=== PATIENT | male | born 2000 | race Caucasian/White ===

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

== ENCOUNTER 2022-08-25 13:58 | Emergency (ER) | payer BC, SELFPAY ==
[2022-08-25 13:59] VITALS: BP 124/70; PULSE 112; RESP 16; TEMP 36.6; O2SAT 100; BMI 23.6
[2022-08-25 14:38] VITALS: BMI 24.9
[2022-08-25 15:05] VITALS: TEMP 38.1
--- NOTE | 2022-08-25 15:06 | EDS_ITS ---
HPI History of Present Illness Chief Complaint: Neuro S/Sx Detail of Chief Complaint: Ejective fever, bilateral hand numbness and nausea and vomiting Informant: patient and parent Onset/Context/Timing Onset: Today Context: Sudden Onset Timing: Intermittent Quality: Generalized viral-like symptoms Location: Generalized Current Severity: Mild Maximum Severity: Moderate Worsened by: Nothing Relieved by: Nothing Associated Symptoms Associated Symptoms: Subjective fever Narrative Narrative: Patient is a 21-year-old healthy male on no medication and has no allergies who presents with subjective fever with nausea and vomiting x4. Last bowel movement yesterday. He denies headache, visual, ocular auditory symptoms. He denies rhinorrhea, congestion, postnasal drainage sore throat. He denies shortness of breath or cough. He denies chest discomfort. He denies abdominal pain. He denies urologic symptoms. He reports decreased urine output. He has equivocal orthostatic symptoms. He denies rash. He does endorse aches. Patient states he is taking creatine for sports . Prior similar symptoms: No Recent Illness/Hospitalization: No PFSH PFSH Medical History no medical history no medical history Home Medications No Known/Unobtainable [No Known Home Medications] 01/15/15 [History Last Taken Unknown] Allergy/AdvReac Type Severity Reaction Status Date / Time No Known Allergies Allergy Verified 08/25/22 14:02 Surgical History no surgical history no surgical history Social History (Updated 08/25/22 @ 15:[address] Tom Pascual MD) household members: family Smoking Status: Never smoker alcohol intake: never substance use type: does not use ROS ROS ED Constitutional Constitutional ED: Reports fever(s) and subjective; Denies chills, sweats or weight loss Eyes Eyes: Denies blurry vision, change in vision or diplopia ENT ENT ED: Denies ear pain, rhinorrhea or sore throat Cardiovascular Cardiovascular: Denies chest pain, orthopnea, palpitations, paroxysmal nocturnal dyspnea or racing heartbeat Respiratory/Chest Respiratory/Chest: Denies cough, dyspnea, dyspnea on exertion, orthopnea or paroxysmal nocturnal dyspnea Gastrointestinal Gastrointestinal: Reports nausea and vomiting; Denies abdominal pain, constipation, diarrhea or melena Genitourinary Genitourinary ED: Denies dysuria, hematuria or urinary frequency Musculoskeletal Musculoskeletal: Denies arthralgias, back pain, myalgias or neck pain Integumentary Denies abscess, Abrasions or rash Neurologic Neurologic: Reports paresthesias; Denies headache(s) or weakness Psychiatric Psychiatric: Denies anxiety or depression Endocrine Endocrinology: Reports cold intolerance; Denies heat intolerance Hematologic/Lymphatic Hematologic/Lymphatic: Reports systems reviewed and no addt'l complaints, except as documented Allergic/Immunologic Allergic/Immunologic ED: Reports mouth swelling and tongue swelling EXAM Physical Exam Const Vital Signs: 08/25/22 13:59 08/25/22 15:05 Temperature 97.8 F 100.6 F H Temperature Source Temporal Oral Pulse Rate 112 H Respiratory Rate 16 Blood Pressure 124/70 H Blood Pressure Mean 88 Pulse Ox 100 Oxygen Delivery Method Room Air Positive well nourished and well developed Constitutional Narrative: Patient appears ill but not toxic. General Appearance ED: well developed; Negative for cyanotic, diaphoretic or pallor HEENT Reports dry mucous membranes; Denies moist mucous membranes HEENT Narrative: Head is atraumatic normocephalic. Ears normal. Nares patent. Posterior pharynx is normal. Mouth ED: Yes dry mucous membranes Mouth: dry mucous membranes Eyes PERRL and EOMs intact bilaterally General Eye ED: Negative for pale conjunctiva or scleral icterus Neck no lymphadenopathy, supple and no JVD Chest Wall inspection of chest normal and palpation of chest normal Resp normal respiratory effort and clear to auscultation bilaterally Cardio regular rhythm, S1 normal heart sound, S2 normal heart sound and no murmurs Rate: tachycardic GI normal to inspection, nondistended, normoactive bowel sounds, non-tender, non-distended and no masses; Negative for hepatosplenomegaly Back/Spine no CVA tenderness Thoracic Spine / Upper Back: thoracic spinal tenderness Lumbar Spine / Lower Back: lumbar spinal tenderness Extremity normal to inspection General Extremety ED: Negative for edema or tenderness General Extremity: Negative for edema Neuro oriented x3, CN's II-XII intact bilaterally and no sensory deficits noted Sensorium / Orientation: alert Motor Exam: strength 5/5 throughout Psych mental status grossly normal Skin no rashes or lesions noted, no wounds and skin turgor normal General Skin Exam: elasticity normal; Negative for jaundice or pallor MDM MDM MDM Narrative Medical decision making narrative: Patient's history physical is consistent with hyperventilation since he has a positive Chv[place]ek sign bilaterally and reported carpal spasm with bilateral hand numbness. His symptoms are consistent with a viral illness. Repeat temp is 100.6. Patient was treated with IV fluids. He was informed he may be ill for another 7 to 10 days. He and his mother were informed of test results and impression. They acknowledge understanding. Lab Data Attestation: I reviewed the patient's lab results. Lab results narrative: BMP is remarkable slight elevation of creatinine with a GFR 67. UA is remarkable for protein otherwise negative.'s of gravity is 1.01. Labs: Laboratory Results - last 24 hr 08/25/22 08/25/22 15:22 15:22 Sodium 134 L Potassium 3.9 Chloride 100 Carbon Dioxide 26.0 Anion Gap 8 BUN 13 Creatinine 1.43 H Estim Creat Clear Calc 85.79 Est GFR (MDRD) Af Amer 81 Est GFR (MDRD) Non-Af 67 BUN/Creatinine Ratio 9.1 L Glucose 106 Calcium 9.5 Urine Color Yellow Urine Clarity Clear Urine pH 8.0 Ur Specific [place] 1.010 Urine Protein 15 H Urine Glucose (UA) Normal Urine Ketones Negative Urine Occult Blood Negative Urine Nitrite Negative Urine Bilirubin Negative Urine Urobilinogen Normal Ur Leukocyte Esterase Negative Discharge Plan Triage Chief Complaint: Neuro S/Sx ED Provider: Tom Pascual Dx/Rx/DC Orders Clinical Impression: Systemic viral illness, Fever and chills, Nausea & vomiting, Hyperventilation syndrome Instructions: ED Viral Syndrome (Adult) Prescriptions: No Action No Known Home Medications Primary Care Provider: Jimena Oneal Referrals: Jimena Oneal MD [Primary Care Provider] - 10-14 Days if not better Disposition Disposition: Home, Self Care
[2022-08-25 15:29] LABS: Color, Urine Yellow (Yellow); Glucose, Dipstick Normal (Normal); Ketone-Dipstick Negative (Negative); Leukocyte Esterase-Dipstick Negative /ul (Negative); Nitrite-Dipstick Negative (Negative); Occult Blood-Urine Negative /ul (Negative); Protein-Dipstick 15 mg/dl (Negative); Urine Bilirubin Dipstick Negative (Negative); Urine Clarity Clear (Clear); Urine Urobilinogen Normal (Normal)
[2022-08-25] MEDS: 0.9% Normal Saline 1,000 ML 1000 ML IV (15:30)
[2022-08-25] MEDS: Ondansetron 4 MG/2 ML Vial IV (15:30)
[2022-08-25 15:42] LABS: Anion Gap 8 (5-15); BUN 13 mg/dL (7-18); BUN/Creat Ratio 9.1 RATIO (10-20); Calcium,Total 9.5 mg/dL (8.5-10.1); Chloride 100 mmol/L (98-107); Creatinine, Serum 1.43 mg/dL (0.70-1.30); EST Glomerular Filtration Rate 67 mL/min (>60); Est Glom Filt Rate - Afr Amer 81 mL/min (>60); Estimated Creatinine Clearance 85.79 ml/min; Glucose 106 mg/dL (74-106); Potassium 3.9 mmol/L (3.5-5.1); Sodium Level 134 mmol/L (136-145)
== END 2022-08-25 16:37 | disposition home or self-care (01) ==
PROVIDERS: Emergency Provider Emergency Medicine; PCP Family Medicine; Visit Provider Emergency Medicine
DX: B34.9 Viral infection, unspecified (principal); R11.2 Nausea with vomiting, unspecified; R06.4 Hyperventilation; R68.83 Chills (without fever); R20.0 Anesthesia of skin
CPT/HCPCS: 80048; 81002; 96361; 96374; 99283; J7030; A4216; J2405

== ENCOUNTER → 2023-01-08 | Outpatient (CLI) | payer BC, SELFPAY ==
--- NOTE | 2023-01-08 15:29 | RAD_ITS ---
INDICATION: injury. laterla knee pain. EXAMINATION/TECHNIQUE: X-RAY - LEFT XR Knee Complete 4 Views or More 4 VIEWS COMPARISON: FINDINGS: BONES: No fracture demonstrated. JOINTS: No dislocation. SOFT TISSUES: Unremarkable. RAD/Knee 4 or More Views IMPRESSION: No evidence of fracture. Electronically Signed: Jesica Walker MD at 23:07 EDT ,
== END | disposition home or self-care (01) ==
LOC: MTRAD 15:28
PROVIDERS: PCP Family Medicine; Visit Provider Family Medicine
DX: S83.289A Other tear of lateral meniscus, current injury, unspecified knee, initial encounter (principal); X58.XXXA Exposure to other specified factors, initial encounter
CPT/HCPCS: 73564

== ENCOUNTER → 2023-02-24 | Outpatient (CLI) | payer BC, SELFPAY ==
--- NOTE | 2023-02-24 08:27 | MRI_ITS ---
STUDY: MRI LEFT KNEE REASON FOR EXAM: Male, 22 years old. Left knee pain, fluid buildup, limited range of motion for 3 months. TECHNIQUE: Standardized fat and water weighted pulse sequences were obtained in all 3 orthogonal planes. COMPARISON: Left knee radiographs dated 01/08/2023. FINDINGS: There is a horizontal-oblique undersurface tear of the posterior horn of the medial meniscus. There is a partial tear of the posterior medial meniscal root (coronal T2 series 7 images 10-11; sagittal PD series 4 image 17). There is also a displaced free edge tear of the body of the medial meniscus with flipped meniscal fragment extending superiorly into the medial gutter (coronal T2 series 7 images 14-18). There is marrow stress edema in the medial femoral condyle and medial tibial plateau. Normal hyaline cartilage of the medial femorotibial compartment. Normal medial collateral ligamentous complex (MCL). Normal distal semimembranosus, gracilis and semitendinosus tendons. Normal lateral meniscus. Normal hyaline cartilage of the lateral femorotibial compartment. Normal lateral femoral condyle and tibial plateau. Normal proximal tibiofibular articulation. Normal lateral collateral (fibular) ligament. Normal popliteus tendon. Normal biceps femoris tendon. Normal anterior cruciate ligament (ACL). Normal posterior cruciate ligament (PCL). Normal congruent patellofemoral articulation. Normal hyaline cartilage of the patellofemoral compartment. Normal medial and lateral patellar retinaculum. Normal quadriceps tendon. Normal patellar tendon. Normal Hoffa''s fat pad. There is a small to moderate joint effusion. There is a small popliteal cyst. The soft tissues are unremarkable. There is no acute fracture. MRI/Lower Ext Joint Only (Routine) IMPRESSION: Horizontal-oblique undersurface tear of the posterior horn of the medial meniscus. Partial tear of the posterior medial meniscal root. Displaced free edge tear of the body of the medial meniscus with flipped meniscal fragment extending superiorly into the medial gutter. Marrow stress edema in the medial femoral condyle and medial tibial plateau. Small to moderate joint effusion. Small popliteal cyst. Electronically Signed: Quintin Trinidad MD at 9:45 EST ,
== END | disposition home or self-care (01) ==
LOC: MRI 08:24
PROVIDERS: PCP Family Medicine; Referring Provider Family Medicine; Visit Provider Family Medicine
DX: M25.569 Pain in unspecified knee (principal)
CPT/HCPCS: 73721

== ENCOUNTER 2023-04-15 07:10 | Day surgery (SDC) | payer BC, SELFPAY ==
[2023-04-15] VITALS (9 sets, daily range): BP systolic 104–141; BP diastolic 43–82; PULSE 38–74; RESP 14–18; TEMP 36.3–37.2; O2SAT 94–100; BMI 23.9
[2023-04-15] MEDS: Lactated Ringers 1,000 ML 15 ML IV ×2 (07:51→10:10)
--- NOTE | 2023-04-15 08:03 | PCM.HP.STD ---
HPI - General HPI Narrative TARAS BILLINGSLEY, is a 22 M who presents for left knee arthroscopy, medial meniscus repair, possible partial meniscectomy. no changes to h and p. rab and narcotic counselling. post op instructions discussed, crutches, possible brace. knee marked. will proceed. MR#: [id number] Acct: [id number] Name: TARAS BILLINGSLEY Jr. Rep #: [id number] : 2000 Provider: Dr. Samuel Walton MD Age/Sex: 22/M Location: [facility] Status: Signed Intake Vital Signs 08/25/2313:38 02/26/2315:01 03/02/2315:34 Height 5 ft 10 in 5 ft 10 in 5 ft 10 in Weight: 170 lb BMI 24.3 Intake Visit Reasons: LEFT KNEE Is patient in pain?: Yes Pain scale (1-10): 5 Allergies No Known Allergies Allergy (Verified 03/02/23 15:34) Medications No Known/Unobtainable [No Known Home Medications] 01/15/15 [History Confirmed 03/02/23] [facility] Medical History (Updated 03/02/23 @ 14:17 by Samuel Walton MD) Left knee pain Tear of medial meniscus of left knee Social History (Updated 08/25/22 @ 15:[address] Tom Pascual MD) household members: family Smoking Status: Never smoker alcohol intake: never substance use type: does not use HPI LEFT KNEE Details: This documentation accurately reflects the service provided and the decisions made by me, Dr. Samuel Walton MD 03/02/23 1416. Part of today?s visit was documented by [ ], acting as scribe. TARAS BILLINGSLEY is a 22 year old M here today for L knee pain ... a couple months ago patient was playing baseball recently was messing around goofing around with a younger child. He was hyperflexing his knee and went to bend down quite deeply and felt a pop and pain mostly anteriorly in his knee. This has not gotten any better with time. The patient continues to experience mechanical symptoms locking catching and giving way of the knee. Has not tried a cortisone injection or physical therapy. The knee is persistently swelling. 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 Ortho Exam General General: Yes no acute distress Neurologic: Yes alert and Yes oriented x3 Psychologic: Yes reasonable and appropriate Right Knee Patella Translation: 2 Left Knee Skin/Wound: Yes CDI, No ecchymosis, No erythema and No swelling 1+: Effusion Knee ROM: Yes ROM-Flexion 0-140 Examination: Yes med jt line tenderness, Yes Lat jt line tenderness, Yes TTP inf pole patella, Yes Crepitus, Yes Pain with flexion, Yes Fay's Test, No TTP Patellar tendon, No TTP Tibial tubercle, No TTP Pes Anserine and No Illiotibial band tenderness Quad Atrophy: No Stability: NML: Anterior Drawer, NML: Keven, NML: Posterior Drawer, NML: Valgus 0, NML: Valgus 30, NML: Varus 0 and NML: Varus 30 Apprehension with Lateral Translation: No Patella Translation: 2 Patellar Tilt Normal: Yes Patella Grind: No KNEE: nvi, normal gait and alignment, lack some mild hyper extension as on other side. Supplemental Info [facility] [address] [place] [id number] Knee 4 or More Views MR#: [id number] Acct: [id number] Name: TARAS BILLINGSLEY Jr. Rep #: [id number] : 2000 22 From: Jesica Walker MD PCP: Dr. Jimena Oneal MD Status: REG [facility] Study: Knee 4 or More Views Date of Exam: 01/08/23 Exam# [id number] Ordering Dr: [place] MD INDICATION: injury. laterla knee pain. EXAMINATION/TECHNIQUE: X-RAY - LEFT XR Knee Complete 4 Views or More 4 VIEWS COMPARISON: FINDINGS: BONES: No fracture demonstrated. JOINTS: No dislocation. SOFT TISSUES: Unremarkable. RAD/Knee 4 or More Views IMPRESSION: No evidence of fracture. Electronically Signed: Jesica Walker MD at 23:07 EDT , [facility] [address] [place] [id number] Lower Ext Joint Only (Routine) MR#: [id number] Acct: [id number] Name: TARAS BILLINGSLEY Jr. Rep #: [id number] : 2000 M 22 From: Quintin Trinidad MD PCP: Dr. Jimena Oneal MD Status: REG CLI Study: Lower Ext Joint Only (Routine) Date of Exam: 02/24/23 Exam# [id number] Ordering Dr: [place] MD STUDY: MRI LEFT KNEE REASON FOR EXAM: Male, 22 years old. Left knee pain, fluid buildup, limited range of motion for 3 months. TECHNIQUE: Standardized fat and water weighted pulse sequences were obtained in all 3 orthogonal planes. COMPARISON: Left knee radiographs dated 01/08/2023. FINDINGS: There is a horizontal-oblique undersurface tear of the posterior horn of the medial meniscus. There is a partial tear of the posterior medial meniscal root (coronal T2 series 7 images 10-11; sagittal PD series 4 image 17). There is also a displaced free edge tear of the body of the medial meniscus with flipped meniscal fragment extending superiorly into the medial gutter (coronal T2 series 7 images 14-18). There is marrow stress edema in the medial femoral condyle and medial tibial plateau. Normal hyaline cartilage of the medial femorotibial compartment. Normal medial collateral ligamentous complex (MCL). Normal distal semimembranosus, gracilis and semitendinosus tendons. Normal lateral meniscus. Normal hyaline cartilage of the lateral femorotibial compartment. Normal lateral femoral condyle and tibial plateau. Normal proximal tibiofibular articulation. Normal lateral collateral ( fibular ) ligament. Normal popliteus tendon. Normal biceps femoris tendon. Normal anterior cruciate ligament (ACL). Normal posterior cruciate ligament (PCL). Normal congruent patellofemoral articulation. Normal hyaline cartilage of the patellofemoral compartment. Normal medial and lateral patellar retinaculum. Normal quadriceps tendon. Normal patellar tendon. Normal Hoffa''s fat pad. There is a small to moderate joint effusion. There is a small popliteal cyst. The soft tissues are unremarkable. There is no acute fracture. MRI/Lower Ext Joint Only (Routine) IMPRESSION: Horizontal-oblique undersurface tear of the posterior horn of the medial meniscus. Partial tear of the posterior medial meniscal root. Displaced free edge tear of the body of the medial meniscus with flipped meniscal fragment extending superiorly into the medial gutter. Marrow stress edema in the medial femoral condyle and medial tibial plateau. Small to moderate joint effusion. Small popliteal cyst. Electronically Signed: Quintin Trinidad MD at 9:45 EST , agree w rads. Coding Level of Care Code Off vis,new,level 3 Diagnoses Left knee pain M25.562 Tear of medial meniscus of left knee S83.242A Assessment and Plan Assessment and Plan (1) Left knee pain: Status: Acute Plan: 22-year-old man with left knee medial meniscus tear with a flipped displaced fragment and possibly extending near the root. We talked about the nonoperative and operative means of treating this problem. Nonoperative could include but not limited to rest ice anti-inflammatories activity modification physical therapy intra-articular cortisone injections. This would not change to the structural issue which is the medial meniscus tear especially that flipped fragment is likely to be irritating the knee and can in the long-term cause more problems of further tearing mechanical symptoms of the knee pain and damage to the cartilage. That being said surgery does have risks. We discussed these risks. Can still retear or not heal, any removal of part of meniscus can result in further wear of the cartilage and other structures. Surgery would be in the form of left knee arthroscopy, medial meniscus repair, possible partial meniscectomy. I would have available the root repair kit in case that is needed. I explained the recovery if it is a simple meniscectomy 2 weeks on crutches and quick recovery whereas the repair would necessitate 6 weeks on crutches and slower recovery after 3 months before returning back to heavy labor. The patient understands wishes to go ahead with surgery. Pros and cons risks and benefits were discussed with the patient including but not limited to infection, pain, stiffness, bleeding, damage to surrounding structures, neurovascular injury, recurrence or retear, failure or wear of hardware or fixation, instability, fracture, deep vein thrombosis and pulmonary embolism, anesthetic risks, , patient dissatisfaction, need for further surgery and other risks. Patient understood and wished to proceed with surgery, and signed the informed consent documentation. (2) Tear of medial meniscus of left knee: [facility] Medical History (Updated 03/30/23 @ 12:01 by Lila Darling) History of irregular heartbeat Left knee pain Non-smoker Tear of medial meniscus of left knee Home Medications No Known/Unobtainable [No Known Home Medications] 01/15/15 [History Last Taken Unknown] Allergy/AdvReac Type Severity Reaction Status Date / Time No Known Allergies Allergy Verified 04/15/23 07:36 Surgical History (Updated 03/30/23 @ 11:56 by Lila Darling) History of esophagogastroduodenoscopy (EGD) History of tonsillectomy Social History (Updated 08/25/22 @ 15:[address] Tom Pascual MD) household members: family Smoking Status: Never smoker alcohol intake: never substance use type: does not use Vital Signs Vital Signs Vital Signs: 04/15/23 07:38 04/15/23 07:38 Temperature 97.4 F L Temperature Source Temporal Pulse Rate 38 L Respiratory Rate 18 Respiratory Pattern Normal Blood Pressure 121/61 H Blood Pressure Mean 81 Blood Pressure Source Monitor Blood Pressure Position Semi-Fowlers Blood Pressure Location Left Arm Pulse Ox 99 Oxygen Delivery Method Room Air Weight Weight: 166 lb 14.239 oz Body Mass Index (BMI) 23.9
[2023-04-15] MEDS: Cefazolin 2 GM in 0.9% Normal Saline (100mL Bag) 100 ML IV (08:36)
[2023-04-15] MEDS: Epinephrine (1 mg/ml) 1 MG/ML VIAL (09:00)
--- NOTE | 2023-04-15 09:35 | PCM.OPRPT ---
Problems Associated Problem List Diagnoses (1) Tear of medial meniscus of left knee: (2) Left knee pain: Report of Operation Date of Procedure: 04/15/23 Pre-Operative Diagnosis: L knee medial meniscus tear Post-Operative Diagnosis: same Surgery/Procedure Performed:: L knee arthroscopy, partial medial meniscectomy Surgeon: Samuel Walton Type of Anesthesia: General and Local Anesthesiologist: Rafael Franklin Estimated Blood Loss (mL): 20 Description of Procedure: Patient brought to the operating room theater. Placed supine on the table. 2 g IV Ancef administered prior to the start of the procedure. General anesthesia induced. Stress positioner to the patient's left side. All bony prominences padded. Tourniquet applied to the left thigh appropriately padded. Lower extremity prepped and draped in the usual sterile fashion allowing over 3 minutes drying time prior to draping. Preoperative timeout performed to confirm the site patient and the surgery. Began by elevating the limb inflated the tourniquet to 250 mmHg. Made standard anterolateral and anteromedial arthroscopy portals as well as 1 accessory high anterior medial portal. Did a full diagnostic arthroscopy. Cartilage in all 3 compartments was normal. Normal patellofemoral joint normal gutters no loose bodies. ACL and PCL appeared normal. Lateral meniscus as well as lateral compartment appeared normal stable. Medial meniscus had a small radial tear at the junction of the posterior horn to the mid body. I did debridement of that using biters and shaving instrument, removed about 4% total surface area. The rest of meniscus as well as the outer third was stable and solid. No role for [id number] repair. In addition there was horizontal fraying again no role for partial meniscectomy or repair there this was at the posterior one third of the medial meniscus. In addition to those 2 tears there is another vertically oriented tear at the root to meniscus junction. The root was still stable the posterior aspect of the meniscus was also stable to probing and this was a partial width tear running A to P, therefore elected to do a gentle debridement of this area to stable margins. No role for root repair here. Arthroscopy pictures taken throughout the case and saved onto the system. Case terminated knee thoroughly irrigated. Skin cleaned with wet and dry dressing. Portal sites closed with 3-0 Monocryl. Steri-Strips Adaptic 4 x 4 gauze and ABD dressing with Angel wrap placed on the knee loosely. Patient woken up from the general anesthetic transferred off the operating table and taken to postanesthetic care unit in stable condition. All sponge needle instrument counts were correct no complications. Plan for the patient weightbearing as tolerated range of motion as tolerated on crutches for the first 2 [address]. cpt 45691 Complications none Admit VTE Documentation VTE Present on Admission: No VTE Mechan Device Prophylaxis: SCD's VTE Pharm Prophylaxis ordered?: No Reason prophylaxis not ordered:: Treatment Not Indicated Procedures Musculoskeletal [id number]: Other Procedure See Report
--- NOTE | 2023-04-15 09:42 | DCINST_ITS ---
Discharge Instructions Diet Discharge Diet: No restrictions Activity Discharge Activity: Return to Normal Activity and Use Crutches Ice area for (Minutes): 10 Weight Bearing Status: Weight bearing as tolerated Keep extremity elevated above heart level: Operative Extremity Dressing / Incision Call your doctor if your incision/area has: Continuous Slow Oozing, Sudden Increased Bleeding, Increased Pain/ Swelling, Increased Redness, Foul Smelling Discharge and Swelling at the incision site Change Dressing in: 2 days Follow Up Care Please Follow Up With: Samuel Walton MD When: 2 days or 2 weeks. Test Results: Test results from this visit will be discussed in further detail at your follow- up appointment, if applicable. Discharge Plan Admission Attending Provider: Samuel Walton Primary Care Provider: Jimena Oneal Instructions Patient Instructions: After Knee Arthroscopy Discharge Orders/Prescriptions Prescriptions: New oxycodone-acetaminophen [Percocet] 5-325 mg tablet 1 tab PO Q4H MDD 6 PRN (Reason: pain) 5 Days Qty: 14 0RF Referrals / Follow Up: Jimena Oneal MD [Primary Care Provider] - Samuel Walton MD [Med Staff - Active Staff] - Disposition Disposition (needs filled in before D/C Order can be placed): Home, Self Care
[2023-04-15] MEDS: Oxycodone/Apap 5/325 Tablet PO (11:05)
== END 2023-04-15 11:57 | disposition home or self-care (01) ==
LOC: SDC 07:10 → AC 07:11
PROVIDERS: PCP Family Medicine; Referring Provider Orthopaedic Surgery Sports Medicine; Visit Provider Orthopaedic Surgery Sports Medicine
PROC: (CPT 29870; principal; 2023-04-15 08:25)
DX: S83.242A Other tear of medial meniscus, current injury, left knee, initial encounter (principal); X58.XXXA Exposure to other specified factors, initial encounter
CPT/HCPCS: 29881; 01400; 93005; J7120; J2405

== ENCOUNTER 2023-05-13 16:30 | Outpatient (RCR) | payer BC, SELFPAY ==
--- NOTE | 2023-05-14 16:51 | HP.PTDCSUM ---
Discharge Summary D/C summary: It has been my pleasure to treat TARAS BILLINGSLEY Jr. referred by Dr. Samuel Walton MD, with the diagnosis of L knee pain s/p meniscectomy 04/15 for a total of 10 visit(s). Discharge Date: 05/14/23 Please see the following information for a summary of their discharge status. Subjective Subjective: Feeling good and no real pain unless he moves laterally quickly. Sleeping well and Normal life outside of [place] and sports. Pt feel slike he can continue strength on his own and progression vs continued PT. Pain L knee anterior: Pain Intensity (Out of 10): 0 Overall Improvement % Improvement: 80 Objective Objective/Function: Full AROM B knees, just slight tightness end range of flexion on L. good strength hip and knee with ful SLR without lag 10+ x/ Walks and jogs without antalgia or gait deficits. Goals Goal 1:: Walk up and down step normal without pain Goal Progress: Goal Met Goal 2:: Full aROM without pain L knee Goal Progress: Goal Met Goal 3:: I approp CV and LE strength to manage condition at [employer]. Goal Progress: Goal Met Goal 4:: LEFS 80 Goal Progress: Progressing Goal 5:: Pateint ready to return to work Goal Progress: Progressing Plan Plan: Pt wishes d/c and likely will be OK with this if he continues strength 3x/week and obeys precautions. D/C Information Discharge Comments: will f/u with doctor in 2 weeks d/c sentence: If there are questions or concerns regarding this patient's physical therapy, please feel free to call me at [phone]. Thank you for the referral of this patient. Sincerely, Joseluis Paulson, DPT, OCS, CSCS Balance/Gait/Functional tests Balance/Special Test Scores Lower Extremity Functional Score: 61 Improvement % Improvement: 80
== END 2023-05-13 19:00 | disposition home or self-care (01) ==
LOC: PT 16:30
PROVIDERS: PCP Family Medicine; Referring Provider Orthopaedic Surgery Sports Medicine; Visit Provider Orthopaedic Surgery Sports Medicine
DX: S83.242D Other tear of medial meniscus, current injury, left knee, subsequent encounter (principal); M25.562 Pain in left knee
CPT/HCPCS: 97110; 97161; 97164

== ENCOUNTER 2023-07-30 15:44 | Emergency (ER) | payer OTHER, BC, SELFPAY ==
[2023-07-30 15:45] VITALS: BP 130/77; PULSE 70; RESP 16; TEMP 35.8; O2SAT 97
--- NOTE | 2023-07-30 15:54 | ED.RN ---
wrapped with ABD and kerlex while in triage.
[2023-07-30 17:32] VITALS: BP 149/75; PULSE 61; RESP 16; O2SAT 98
[2023-07-30 17:34] VITALS: BMI 25.0
[2023-07-30] MEDS: Lidocaine 1% (20 ml mdv) 20 ML Vial 3 ML INFILT (17:58)
--- NOTE | 2023-07-30 18:33 | EX.ED.GENINJ ---
HPI <GEETHA Quinn - Last Filed: 07/30/23 18:39> History of Present Illness Chief Complaint: Laceration Narrative Narrative: Patient is a 22-year-old male with no significant medical history presents to the emergency department with a left thumb laceration. Patient states he was using a new knife, keep cut siding for houses, when the left thumb got in the way any has a 2.5 cm laceration to the base of the thumb on the radial aspect. Patient secondary to the bleeding is here for evaluation. Tetanus vaccination unknown. PFSH <GEETHA Quinn - Last Filed: 07/30/23 18:39> [facility] Medical History History of irregular heartbeat Left knee pain Non-smoker Tear of medial meniscus of left knee Allergy/AdvReac Type Severity Reaction Status Date / Time No Known Allergies Allergy Verified 07/30/23 15:45 Surgical History History of esophagogastroduodenoscopy (EGD) History of tonsillectomy Social History household members: family Smoking Status: Never smoker alcohol intake: never substance use type: does not use ROS <GEETHA Quinn - Last Filed: 07/30/23 18:39> ROS ED ROS Narrative Constitutional: Negative for fever, chills, weight loss, weakness Eyes: Negative for vision loss, vision change, double vision ENT: Negative for any sore throat, ear pain, congestion Cardiovascular: Negative for any chest pain, tightness, palpitations Respiratory: Negative for any cough, sputum production, hemoptysis, dyspnea, dyspnea on exertion, orthopnea Gastrointestinal: Negative for any abdominal pain, nausea, vomiting, diarrhea, constipation, blood in stool, blood in vomit : Negative for any urinary frequency, dysuria, retention, blood in urine Muscle skeletal: Negative for any neck pain, back pain Neurological: Negative for any headache, syncope, dizziness Skin: Negative for any rashes, itching, abrasions. Positive laceration to the left thumb Psychiatric: Negative for any depression, anxiety, stress, suicidal ideation, homicidal ideation Hematologic: Negative for any excessive bruising, easy bleeding EXAM <GEETHA Quinn - Last Filed: 07/30/23 18:39> Physical Exam Narrative Exam Narrative: Vital signs reviewed. Extremities: No peripheral edema, no signs of gross trauma or deformity. Active full range of motion of all extremities. Patient is obvious trauma to the distal tip of the left thumb. Patient has a laceration to the base of the thumb mostly on the radial aspect, through the nail to the nailbed and 1 cm on the pad of the left thumb Neuro: Cranial nerves II through XII intact, no focal neurological deficits. Skin: Clean dry and intact with no rash, purpura, petechiae, vesicles or pustules. Backs/flank: No CVA tenderness, no midline spinal tenderness, no deformity. Psych: Normal mood and affect. No SI, HI or acute psychosis. Const Vital Signs: 07/30/23 15:45 07/30/23 17:32 Temperature 96.4 F L Temperature Source Temporal Pulse Rate 70 61 Respiratory Rate 16 16 Blood Pressure 130/77 H 149/75 H Blood Pressure Mean 94 99 Pulse Ox 97 98 Oxygen Delivery Method Room Air Room Air <Dr. Tom Pascual MD - Last Filed: 07/30/23 18:45> Physical Exam Const Vital Signs: 07/30/23 15:45 07/30/23 17:32 Temperature 96.4 F L Temperature Source Temporal Pulse Rate 70 61 Respiratory Rate 16 16 Blood Pressure 130/77 H 149/75 H Blood Pressure Mean 94 99 Pulse Ox 97 98 Oxygen Delivery Method Room Air Room Air MDM <GEETHA Quinn - Last Filed: 07/30/23 18:39> [facility] Treatment and Re-Evaluation Narrative: Differential diagnosis includes however is not limited to: Tuft fracture, laceration to the tendon, finger laceration, nailbed laceration Patient appears nontoxic, vital signs are stable. Patient presents the emerged part with a laceration to the left thumb. Tetanus vaccination up-to-date today. Patient's left thumb was anesthetized, the attending and myself were able to take off the radial aspect of the nail, sterile gloves, sterile drapes were used. Irrigated copiously with 200 cc of normal saline. I was able to place 3 sutures total of Vicryl and the nailbed, I was able to place 3 simple ruptured sutures of 5-0 Ethilon on the pad of the finger. Patient tolerated well. Patient will follow up with orthopedics. I was able to place the patient in a tube gauze. He was given dressing change instructions as well as bacitracin ointment for home. He is instructed to change dressings once a day. He will follow-up outpatient. All questions answered, stable for discharge. <Dr. Tom Pascual MD - Last Filed: 07/30/23 18:45> [facility] MDM Narrative Medical decision making narrative: I have personally performed a face to face assessment of the patient and have reviewed the TRACE Note. I performed a substantive portion of the visit including all aspects of the following. My cardona findings include: History is For laceration radial side of left thumb. He is right-hand dominant. This occurred using a knife cutting siding. Tetanus was prior to 5 years ago. Denies paresthesia, anesthesia medics. Exam is laceration involving the nail bed as well as the volar surface of the left thumb radial side. There is a flap. Patient's sensation was tested and normal. He is able to extend and flex at the IP joint. Medical Decision Making patient had a digital block with superficial radial nerve block as well. The radial portion of the nail was removed by me with some difficulty. There was no loss of tissue. The ulnar side was partially removed to allow for repair of the laceration. This was performed by the nurse practitioner under my supervision and guidance. The wound was evaluated afterwards and patient has anatomical approximation. Other additions or changes: Outpatient follow-up with Ortho. Discharged home with appropriate instructions and is stable. Discharge Plan Triage Chief Complaint: Laceration ED Midlevel Provider: Russ Bocanegra ED Provider: Tom Pascual Dx/Rx/DC Orders Clinical Impression: Nailbed laceration, finger, Laceration of left thumb Instructions: ED Laceration Extremity Primary Care Provider: Jimena Oneal Referrals: Jimena Oneal MD [Primary Care Provider] - Samuel Walton MD [Med Staff - Active Staff] - Activity Restrictions/Additional Instructions: You need to see orthopedics. Keep the area clean and covered. Return for any worsening redness fever chills nausea or vomiting. Disposition Disposition: Home, Self Care
[2023-07-30] MEDS: Diphth,Pertuss(Acell),Tet Vac 0.5 ML Vial IM (18:53)
[2023-07-30 18:55] VITALS: BP 119/74; PULSE 63; RESP 14; TEMP 36.6; O2SAT 99
--- NOTE | 2023-07-30 18:57 | ED.RN ---
Pt declined waiting on shot time after tdap. Ambulated out of dept with friend.
== END 2023-07-30 18:57 | disposition home or self-care (01) ==
PROVIDERS: Emergency Provider Emergency Medicine; PCP Family Medicine; Visit Provider Emergency Medicine
DX: S61.112A Laceration without foreign body of left thumb with damage to nail, initial encounter (principal); W26.0XXA Contact with knife, initial encounter; Y99.0 Civilian activity done for income or pay; Z23 Encounter for immunization
CPT/HCPCS: 11760; 90471; 90715; 99282

== ENCOUNTER → 2024-03-28 | Outpatient (CLI) | payer BC, SELFPAY | END | disposition home or self-care (01) | LOC: LAB 18:34 | PROVIDERS: PCP Family Medicine | DX: A64 Unspecified sexually transmitted disease (principal) | CPT/HCPCS: 87491; 87591 ==

== ENCOUNTER → 2024-09-05 | Outpatient (CLI) | payer BC, SELFPAY ==
--- NOTE | 2024-09-05 17:38 | CT_ITS ---
EXAM: CT Abdomen and Pelvis With Intravenous Contrast CLINICAL INDICATION: MUSCLE STRAIN TECHNIQUE: Axial computed tomography images of the abdomen and pelvis with intravenous contrast. This CT exam was performed using one or more of the following dose reduction techniques: automated exposure control, adjustment of the mA and/or kV according to patient size, and/or use of iterative reconstruction technique. COMPARISON: No relevant prior studies available. FINDINGS: LUNG BASES: Unremarkable. No mass. No consolidation. MEDIASTINUM: Small esophageal hiatal hernia. ABDOMEN: LIVER: Hepatomegaly with fatty infiltration. GALLBLADDER AND BILE DUCTS: Unremarkable. No calcified stones. No ductal dilation. PANCREAS: Unremarkable. No mass. No ductal dilation. SPLEEN: Unremarkable. No splenomegaly. ADRENALS: Unremarkable. No mass. KIDNEYS AND URETERS: Unremarkable. No solid mass. No hydronephrosis. STOMACH AND BOWEL: Constipation with suggestion of fecal impaction of the rectum. No obstruction. No mucosal thickening. PELVIS: APPENDIX: No findings to suggest acute appendicitis. BLADDER: Unremarkable. No mass. REPRODUCTIVE: Unremarkable as visualized. ABDOMEN and PELVIS: INTRAPERITONEAL SPACE: Unremarkable. No free air. No significant fluid collection. BONES/JOINTS: No acute fracture. No dislocation. SOFT TISSUES: Unremarkable. VASCULATURE: Unremarkable. No abdominal aortic aneurysm. LYMPH NODES: Unremarkable. No enlarged lymph nodes. CT/Abdomen/Pelvis WITH Contrast IMPRESSION: 1. Constipation with suggestion of fecal impaction of the rectum. 2. Small esophageal hiatal hernia. 3. Hepatomegaly with fatty infiltration. Reading Location: [facility]
== END | disposition home or self-care (01) ==
PROVIDERS: PCP Family Medicine; Referring Provider Family Medicine; Visit Provider Family Medicine
DX: S39.011A Strain of muscle, fascia and tendon of abdomen, initial encounter (principal); X58.XXXA Exposure to other specified factors, initial encounter
CPT/HCPCS: 74177; Q9967

== ENCOUNTER → 2024-09-27 | Outpatient (CLI) | payer BC, SELFPAY | END | disposition home or self-care (01) | PROVIDERS: PCP Family Medicine; Referring Provider Family Medicine; Visit Provider Family Medicine | DX: Z20.2 Contact with and (suspected) exposure to infections with a predominantly sexual mode of transmission (principal) | CPT/HCPCS: 87491; 87591 ==

== ENCOUNTER → 2024-10-17 | Outpatient (CLI) | payer BC, SELFPAY ==
--- NOTE | 2024-10-17 17:57 | US_ITS ---
PROCEDURE: TESTICULAR WITH ARTERIAL FLOW 10/17/2024 REASON FOR EXAM: TESTICULAR PAIN, predominantly on the left TECHNIQUE: TESTICULAR WITH ARTERIAL FLOW COMPARISON: None. FINDINGS: Bilateral testes have a normal, symmetric sonographic appearance. Homogeneous parenchymal echotexture. Right testicle measures 4.6 x 2.6 x 2 cm. Left testicle measures 4.5 x 3.1 x 2.2 cm. Normal symmetric vascular flow bilaterally on color Doppler, no evidence for testicular torsion. There is a physiologic amount of fluid around both testes. No hydrocele or evidence for varicocele. Bilateral epididymides have a grossly normal, symmetric appearance. US/Testicular with Arterial Flow IMPRESSION: Unremarkable scrotal ultrasound. No evidence of torsion. No significant hydrocele or varicocele on either side. No evidence for orchitis or epididymitis. Reading Location: [id number]
== END | disposition home or self-care (01) ==
LOC: US 17:45
PROVIDERS: PCP Family Medicine; Referring Provider Family Medicine; Visit Provider Family Medicine
DX: N50.812 Left testicular pain (principal)
CPT/HCPCS: 76870; 93976

== ENCOUNTER → 2024-11-16 | Outpatient (CLI) | payer BC, SELFPAY ==
--- NOTE | 2024-11-16 17:26 | RAD_ITS ---
PROCEDURE: SHOULDER MIN 2 VIEWS 11/16/2024 REASON FOR EXAM: PAIN TECHNIQUE: SHOULDER MIN 2 VIEWS COMPARISON: none RAD/Shoulder min 2 Views IMPRESSION: No acute fracture or dislocations. No significant degenerative changes. No acute soft tissue abnormalities. No radiographic foreign body. Reading Location: [facility]
--- NOTE | 2024-11-16 17:26 | RAD_ITS ---
PROCEDURE: SHOULDER MIN 2 VIEWS 11/16/2024 REASON FOR EXAM: PAIN TECHNIQUE: SHOULDER MIN 2 VIEWS COMPARISON: none RAD/Shoulder min 2 Views IMPRESSION: No acute fracture or dislocations. No significant degenerative changes. No acute soft tissue abnormalities. No radiographic foreign body. Reading Location: [facility]
== END | disposition home or self-care (01) ==
LOC: MTRAD 16:53
PROVIDERS: PCP Family Medicine; Referring Provider Family Medicine; Visit Provider Family Medicine
DX: M25.511 Pain in right shoulder (principal)
CPT/HCPCS: 73030

== ENCOUNTER → 2024-12-16 | Outpatient (CLI) | payer BC, SELFPAY ==
--- NOTE | 2024-12-16 15:25 | MRI_ITS ---
PROCEDURE: UPPER EXT JOINT ONLY(ROUTINE) 12/16/2024 REASON FOR EXAM: RT SHOULDER PAIN STRAIN OF RTC TECHNIQUE: Procedure Code: [id number] Modality: MR Procedure: UPPER EXT JOINT ONLY(ROUTINE) Multiplanar and multisequence images were obtained without IV contrast administration. COMPARISON: none FINDINGS: Focal cortical impaction/defect of the posterosuperior aspect of the humeral head with no underlying marrow edema. Linear high signa seen involving the anterior and anteroinferior labrum. Elevated signal of the inferior glenohumeral ligament with focal ill definition of its humeral insertion. The supraspinatus tendon appears thickened and shows intrasubstance with no evidence of fibers interruption. The subscapularis, infraspinatus and teers minor tendons are intact The intra and extra-articular segment of the long head of the biceps tendon appears intact. Fluid signal seen distending its sheath. The biceps-labral anchor is intact. Intact acromioclavicular joint The glenohumeral joint space is well maintained. Moderate glenohumeral joint effusion. Fluid signal seen distending the subscapular recess and subacromial/subdeltoid bursa. The neurovascular bundles appear unremarkable. No marrow infiltrative lesions. MRI/Upper Ext Joint Only(Routine) IMPRESSION: Humeral head Hill Sach's defect. Injured anterior & anteroinferior labrum. Injured inferior glenohumeral ligament. Supraspinatus tendonitis. Moderate glenohumeral joint effusion with subacromial/subdeltoid bursitis. Reading Location: [facility]
== END | disposition home or self-care (01) ==
LOC: OPMRI 15:22
PROVIDERS: PCP Family Medicine; Referring Provider Student in an Organized Health Care Education/Training Program; Visit Provider Student in an Organized Health Care Education/Training Program
DX: S46.011A Strain of muscle(s) and tendon(s) of the rotator cuff of right shoulder, initial encounter (principal); X58.XXXA Exposure to other specified factors, initial encounter
CPT/HCPCS: 73221